=== PATIENT | female | born 1995 | race Caucasian/White ===

== ENCOUNTER 2025-04-09 07:55 | Outpatient (CLI) | payer MEDICAID ==
--- NOTE | 2025-04-09 11:10 | RADIOLOGY REPORT ---
TRANSABDOMINAL AND TRANSVAGINAL PELVIC ULTRASOUND CLINICAL HISTORY: POLYCYSTIC OVARIAN SYNDROME TECHNIQUE: Multiple grayscale ultrasound images were obtained of the pelvis via transabdominal and transvaginal approach. Limited color Doppler and spectral Doppler acquisitions were also obtained. COMPARISON: None FINDINGS: Uterus: 8.6 x 4.3 x 5.0 cm. The uterine contour is smooth. No myometrial masses are seen. Endometrium: 0.7 cm. No endometrial mass is seen. There is an intrauterine device in the endometrial cavity. Calcific appearing densities in the lower endometrium may reflect dystrophic calcifications. Right adnexa: right ovary 2.6 x 1.7 x 1.9 cm. Normal arterial blood flow in the ovary. No right adnexal mass seen. Left adnexa: left ovary 3.0 x 2.4 x 2.9 cm. Normal arterial blood flow in the ovary. No left adnexal mass seen. Other: Trace simple fluid in the cul-de-sac. This is most likely physiologic. IMPRESSION: 1. IUD in the uterus. 2. Calcific appearing densities in the lower endometrial cavity which could be dystrophic calcifications. 3. Normal ovaries.
== END 2025-04-09 23:59 | disposition home or self-care (01) ==
LOC: RAD 07:55
PROVIDERS: ATTEND Nurse Practitioner
DX: E28.2 Polycystic ovarian syndrome (principal); M54.50 Low back pain, unspecified; Z97.5 Presence of (intrauterine) contraceptive device
CPT/HCPCS: 76830; 76856; 93976